=== PATIENT | female | born 1950 | race Caucasian/White ===

== ENCOUNTER 2021-07-01 16:24 | Day surgery (SDCO) | payer MEDICARE, OTHER ==
[~2021-07-01] VITALS: Ht 165.1 cm; Wt 67.6 kg
[2021-07-01 16:54] LABS: BASOPHIL 0.4 % (0-2); EOSINOPHIL 0.3 % (0-7); HCT 45.1 % (37.0-47.0); LYMPHOCYTE 12.6 % (15-48); MCH 28.5 pg (25.0-31.0); MCHC 33.3 g/dL (32.0-36.0); MCV 85.7 fL (78.0-100.0); MONOCYTE 4.4 % (0-12); MPV 11.3 fL (6.0-9.5); NEUTROPHIL 80.6 % (41-80); NRBC 0; PLT 284 K/uL (150-400); RBC 5.26 M/uL (4.20-5.40); WBC 12.7 K/uL (4.0-10.5)
[2021-07-01 17:08] LABS: BILIRUBIN - TOTAL 0.4 mg/dL (0.2-1.0); BUN/CREAT RATIO (CALC) 29.5 RATIO; CREATININE 0.44 mg/dL (0.51-0.95); GLOBULIN (CALCULATION) 3.8 g/dL; POTASSIUM 4.7 mmol/L (3.5-5.1); TOTAL PROTEIN 6.8 g/dL (6.4-8.2)
[2021-07-01 17:31] LABS: INFLUENZA A NAA NEGATIVE (NEGATIVE)
[2021-07-01 17:48] LABS: CORONAVIRUS 2019 SARS-COV-2 POSITIVE (NEGATIVE)
[2021-07-01 19:10] LABS: BILIRUBIN NEGATIVE (NEGATIVE); BLOOD TRACE-INTACT Ery/uL (NEGATIVE); CLARITY CLEAR (CLEAR); COLOR YELLOW (YELLOW); GLUCOSE (U) 2+ mg/dL (NORMAL); LEUKOCYTES NEGATIVE Leu/uL (NEGATIVE); NITRITE NEGATIVE (NEGATIVE); PROTEIN 1+ mg/dL (NEGATIVE); SPECIFIC GRAVITY >=1.030 (1.001-1.030); UROBILINOGEN 0.2 mg/dL (0.2-1.0)
[2021-07-01 19:19] LABS: BACTERIA TRACE; URINARY WBC RARE
[2021-07-01 23:44] LABS: LACTIC ACID 1.6 mmol/L (0.4-1.9)
[2021-07-01 23:57] LABS: BUN/CREAT RATIO (CALC) 28.6 RATIO; CREATININE 0.42 mg/dL (0.51-0.95); POTASSIUM 3.6 mmol/L (3.5-5.1)
[2021-07-02 02:20] LABS: CREATININE 0.38 mg/dL (0.51-0.95); POTASSIUM 3.1 mmol/L (3.5-5.1)
[2021-07-02 04:18] LABS: BUN/CREAT RATIO (CALC) 25.6 RATIO; CREATININE 0.39 mg/dL (0.51-0.95); POTASSIUM 2.8 mmol/L (3.5-5.1)
[2021-07-02 06:45] LABS: BUN/CREAT RATIO (CALC) 23.7 RATIO; CREATININE 0.38 mg/dL (0.51-0.95); POTASSIUM 3.2 mmol/L (3.5-5.1)
[2021-07-02 09:01] LABS: BUN/CREAT RATIO (CALC) 19.5 RATIO; CREATININE 0.41 mg/dL (0.51-0.95); POTASSIUM 3.4 mmol/L (3.5-5.1)
[2021-07-02 10:48] LABS: BUN/CREAT RATIO (CALC) 18.6 RATIO; CREATININE 0.43 mg/dL (0.51-0.95); POTASSIUM 4.1 mmol/L (3.5-5.1)
[2021-07-02 12:30] LABS: CREATININE 0.41 mg/dL (0.51-0.95); POTASSIUM 3.6 mmol/L (3.5-5.1)
[2021-07-02 16:51] LABS: CREATININE 0.4 mg/dL (0.51-0.95); POTASSIUM 3.6 mmol/L (3.5-5.1)
[2021-07-02 18:45] LABS: BUN/CREAT RATIO (CALC) 21.1 RATIO; CREATININE 0.38 mg/dL (0.51-0.95); POTASSIUM 3.6 mmol/L (3.5-5.1)
[2021-07-02 23:43] LABS: CREATININE 0.35 mg/dL (0.51-0.95); POTASSIUM 3.1 mmol/L (3.5-5.1)
[2021-07-03 03:38] LABS: BUN/CREAT RATIO (CALC) 20.6 RATIO; CREATININE 0.34 mg/dL (0.51-0.95); POTASSIUM 3.7 mmol/L (3.5-5.1)
[2021-07-03 09:41] LABS: BUN/CREAT RATIO (CALC) 22.2 RATIO; CREATININE 0.36 mg/dL (0.51-0.95); POTASSIUM 3.6 mmol/L (3.5-5.1)
--- NOTE | 2021-07-04 14:44 | NUR ---
07/04/21 Ms. Cullen lives at home with her spouse. She was independent in the home and community prior to admission. Ms. Cullen does not have a PCP. Her daughter, Lizzie Reza, [phone], plans to arrange an appointment with Sara Locke, at discharge. Recommendations were made for Ms. Reza to request for diabetic teaching to be arranged by Ms. Locke. - Dr. Munoz was requested to write orders for diabetic supplie per Ms. Reza's request.
[2021-07-04 15:28] LABS: BUN/CREAT RATIO (CALC) 8.5 RATIO; CREATININE 0.47 mg/dL (0.51-0.95); POTASSIUM 3.3 mmol/L (3.5-5.1)
[2021-07-05 06:31] LABS: BUN/CREAT RATIO (CALC) 7.3 RATIO; CREATININE 0.41 mg/dL (0.51-0.95); POTASSIUM 3.5 mmol/L (3.5-5.1)
[2021-07-05] MEDS ORDERED: METFORMIN HCL500 MG PO (07:29)
[2021-07-05] MEDS ORDERED: LANTUS SOL100 UNIT/1 SC (07:29)
[2021-07-05] MEDS ORDERED: ACCU-CHEK1 EACH SC (07:29)
[2021-07-05] MEDS ORDERED: GLUCOSE TEST S1 EACH SC (07:29)
[2021-07-05] MEDS ORDERED: FREESTYLE LITE1 EACH SC (07:29)
== END 2021-07-05 10:45 | disposition home or self-care (01) ==
LOC: FER 16:24 → FTCU 07-03 07:51
PROVIDERS: Allergy & Immunology Allergy; Emergency Medicine; Emergency Medicine Emergency Medical Services; Internal Medicine; Physician Assistant; ADMIT Internal Medicine
DX: E11.10 Type 2 diabetes mellitus with ketoacidosis without coma (principal); U07.1 COVID-19; I10 Essential (primary) hypertension; Z79.4 Long term (current) use of insulin; Z83.3 Family history of diabetes mellitus; Z80.42 Family history of malignant neoplasm of prostate
CPT/HCPCS: 36415; 36600; 71045; 71275; 80048; 80053; 81001; 82009; 82803; 82962; 83036; 83605; 83690; 83735; 83880; 84484; 85025; 87040; 93005; 94010; 96365; 96366; 96367; 96368; 96375; 96376; G0378; J0456; J1170; J1650; J1815; J2405; J2550; J3475; J3480; J7030; J7050; J7120; U0002